=== PATIENT | male | born 1985 | race Caucasian/White ===

== ENCOUNTER 2016-09-30 04:35 | Emergency (ER) | payer OTHER ==
[~2016-09-30] VITALS: Ht 172.7 cm; Wt 94.1 kg
[2016-09-30 04:54] LABS: ADD MIUA? YES; BILIRUBIN NEGATIVE; BLOOD LARGE; COLOR YELLOW ((YELLOW)); GLUCOSE (STRIP) NEGATIVE; KETONES NEGATIVE; LEUKOCYTES NEGATIVE; NITRITE NEGATIVE; PROTEIN (STRIP) 30; SPECIFIC GRAVITY 1.023 (1.000-1.030); UROBILINOGEN 0.2 MG/DL (0.2-1.0)
[2016-09-30 05:02] LABS: BACTERIA NONE SEEN /HPF; EPITHELIAL CELLS RARE /HPF; MUCUS TRACE /LPF; RED BLOOD CELLS TNTC /HPF (0-5); UCUL ADDED? YES; WHITE BLOOD CELLS 0-5 /HPF (0-5)
[2016-09-30 05:36] LABS: CHLORIDE 101 mEq/L (99-109); SODIUM 138 mEq/L (136-147)
[2016-09-30 05:38] LABS: GLUCOSE 118 mg/dL (70-99)
[2016-09-30 05:39] LABS: ANION GAP 11 MEQ/L (2-14)
[2016-09-30 05:42] LABS: GFR ESTIMATE (CALCULATED) > 59 mL/min/
[2016-09-30 05:43] LABS: UREA NITROGEN (BUN) 19 mg/dL (9-23)
[2016-09-30 05:46] LABS: HEMATOCRIT 42.5 % (38.0-50.0); MCH 28.8 PG (29.0-34.0); MCHC 34.1 G/DL (30.0-36.0); MCV 84.5 FL (86-99); MEAN PLAT.VOLUME 11.4 uM^3 (9.0-12.4); PLATELET COUNT 284 K/uL (156-360); RBC DIS.WIDTH-CV 12.4 % (11.8-14.6); RBC DIS.WIDTH-SD 37.9 % (39-53); RED BLOOD COUNT 5.03 M/uL (4.00-5.50); WHITE BLOOD COUNT 8.3 K/uL (4.1-10.2)
[2016-09-30] MEDS ORDERED: ZOFRAN8 MG PO (06:08)
[2016-09-30] MEDS ORDERED: FLOMAX0.4 MG PO (06:08)
[2016-09-30] MEDS ORDERED: NORCO 5/3251 TABLET PO (06:08)
[2016-09-30 06:17] VITALS: BP 131/83
== END 2016-09-30 06:29 | disposition home or self-care (01) ==
LOC: EME 04:35
PROVIDERS: Emergency Medicine
DX: N13.2 Hydronephrosis with renal and ureteral calculous obstruction (principal); E86.0 Dehydration; Z88.0 Allergy status to penicillin
CPT/HCPCS: 74176; 80048; 81003; 85027; 87086; 99281; 99285; J1885; J2405; J7030

== ENCOUNTER 2017-08-11 07:32 | Emergency (ER) | payer OTHER ==
[~2017-08-11] VITALS: Ht 172.7 cm; Wt 92.7 kg
[~2017-08-11 07:32] MED LIST: FLOMAX0.4 MG PO; NORCO 5/3251 TABLET PO; ZOFRAN8 MG PO
[2017-08-11] MEDS ORDERED: MOTRIN800 MG PO (08:23)
[2017-08-11] MEDS ORDERED: FLEXERIL10 MG PO (08:23)
[2017-08-11 08:32] VITALS: BP 128/68
== END 2017-08-11 08:33 | disposition home or self-care (01) ==
LOC: EME 07:32
DX: S16.1XXA Strain of muscle, fascia and tendon at neck level, initial encounter (principal); Y93.E9 Activity, other interior property and clothing maintenance; Y92.008 Other place in unspecified non-institutional (private) residence as the place of occurrence of the external cause; Z88.0 Allergy status to penicillin
CPT/HCPCS: 99281; 99284